=== PATIENT | female | born 1945 ===

== ENCOUNTER 2016-09-20 15:01 | Emergency (ER) | payer BC ==
[2016-09-20 15:13] VITALS: BP 158/77
--- NOTE | 2016-09-20 19:35 | Emergency Department Report ---
ED Fall HPI - General Chief Complaint: Fall Stated Complaint: FALL Time Seen by Provider: 09/20/16 19:32 Source: patient, family Mode of arrival: Ambulatory - History of Present Illness Initial Comments: Patient here reported that she fell 2 days ago. She complained of bodyache after fall. She is reporting left hand swelling with pain. She is also reporting left knee pain and left facial abrasion. She denies that she hit her head or any loss of consciousness. She is complaining abrasion to left knee. Complaint: fall Onset/Timin -: days(s) Fall From: standing When Fall Occurred: # days [facility]BLE CARVER (2) Fall Witnessed: yes, by family Place Fall Occurred: home Loss of Consciousness: none Prolonged Down Time?: no Symptoms Prior to Fall: none Location: face Location - Extremities: Left: Hand (pain and swelling), Knee (pain and abrasion) Severity: mild Severity scale (0 -10): 3 Quality: aching Context: tripped/slipped Associated Symptoms: denies: headache, neck pain, numbness, weakness, chest paint, shortness of breath, abdominal pain, hematuria, unable to walk, lightheaded, vertigo, confusion - Related Data Home Medications Medication Instructions Recorded Confirmed Last Taken Hydrochlorothiazide 12.5 mg PO DAILY 09/20/16 09/20/16 09/20/16 Meclizine 25 mg PO BID PRN 09/20/16 09/20/16 Unknown metFORMIN [Glucophage] 500 mg PO BID 09/20/16 09/20/16 09/20/16 Previous Rx's Medication Instructions Recorded Last Taken Type traMADol [Ultram] 50 mg PO Q6HR PRN #20 tablet 09/20/16 Unknown Rx Allergies Allergy/AdvReac Type Severity Reaction Status Date / Time lisinopril Allergy Swelling Verified 09/20/16 15:13 ED Review of Systems ROS: Stated complaint: FALL Other details as noted in HPI Comment: All other systems reviewed and negative Constitutional: denies: chills, fever ENT: denies: epistaxis Respiratory: no symptoms reported Cardiovascular: denies: chest pain, palpitations, dyspnea on exertion Gastrointestinal: denies: abdominal pain, nausea, vomiting, diarrhea Musculoskeletal: joint swelling, arthralgia Skin: other (abrasions). denies: rash Neurological: denies: headache, weakness, numbness, paresthesias, confusion, abnormal gait ED Past Medical Hx - Past Medical History Previous Medical History?: Yes Hx Hypertension: Yes Hx Diabetes: Yes - Surgical History Past Surgical History?: Yes Additional Surgical History: Tubaligation - Family History Family history: hypertension - Social History Smoking Status: Never Smoker Substance Use Type: Alcohol, Non Opiate Pain, Prescribed - Medications Home Medications: Home Medications Medication Instructions Recorded Confirmed Last Taken Type Hydrochlorothiazide 12.5 mg PO DAILY 09/20/16 09/20/16 09/20/16 History Meclizine 25 mg PO BID PRN 09/20/16 09/20/16 Unknown History metFORMIN [Glucophage] 500 mg PO BID 09/20/16 09/20/16 09/20/16 History traMADol [Ultram] 50 mg PO Q6HR PRN #20 tablet 09/20/16 Unknown Rx ED Physical Exam - General Limitations: No Limitations General appearance: alert, in no apparent distress - Head Head exam: Present: atraumatic, normocephalic, normal inspection - Expanded Head Exam Expanded Head exam: Absent: laceration, abrasion, contusion, hematoma, racoon eyes, brown's sign, general tenderness, tenderness of temporal artery, CSF rhinorrhea , CSF otorrhea - Eye Eye exam: Present: normal appearance, PERRL, EOMI Pupils: Present: normal accommodation - Neck Neck exam: Present: normal inspection, full ROM. Absent: tenderness, meningismus, lymphadenopathy - Respiratory Respiratory exam: Present: normal lung sounds bilaterally. Absent: respiratory distress - Cardiovascular Cardiovascular Exam: Present: regular rate, normal rhythm, normal heart sounds - GI/Abdominal GI/Abdominal exam: Present: soft, normal bowel sounds. Absent: distended, tenderness, guarding, rebound, rigid - Extremities Exam Extremities exam: Present: normal inspection, full ROM, other (patient with with full flexion and extension extension to both knees. No ballottement in or effusion noted. Nontender to palpate. Normal temperature.). Absent: tenderness - Back Exam Back exam: Present: normal inspection, full ROM. Absent: tenderness, CVA tenderness (R), CVA tenderness (L), muscle spasm, paraspinal tenderness, vertebral tenderness, rash noted - Neurological Exam Neurological exam: Present: alert, oriented X3, normal gait, reflexes normal. Absent: motor sensory deficit - Expanded Neurological Exam Expanded Neurological exam: Absent: innattentive, memory loss-remote event, memory loss- recent event, ataxia, receptive aphasia, expressive aphasia, total aphasia, tremor, protecting the airway Patient oriented to: Present: person, place, time Speech: Present: fluid speech Cranial nerves: EOM's Intact: Normal, Gag Reflex: Normal, Nystagmus: Normal, Facial Sensation: Normal Cerebellar function: Romberg: Normal Upper motor neuron: Pronator Drift: Normal, Sensory Extinction: Normal Sensory exam: Upper Extremity Light Touch: Normal, Upper Extremity Temperature: Normal, UE 2 Point Discrimination: Normal, Lower Extremity Light Touch: Normal, Lower Extremity Temperature: Normal, LE 2 Point Discrimination: Normal Motor strength exam: RUE: 5, LUE: 5, RLE: 5, LLE: 5 DTR: bicep (R): 2+, bicep (L): 2+, tricep (R): 2+, tricep (L): 2+, knee (R): 2+ , knee (L): 2+, ankle (R): 2+, ankle (L): 2+ Best Eye Response (Doug): (4) open spontaneously Best Motor Response ([place]): (6) obeys commands Best Verbal Response (Doug): (5) oriented Doug Total: 15 - Psychiatric Psychiatric exam: Present: normal affect, normal mood - Skin Skin exam: Present: warm, dry, normal color, abrasion (superficial abrasion to left knee and left facial area.). Absent: erythema ED Course Vital Signs 09/20/16 15:08 Temperature 98.4 F Pulse Rate 70 Respiratory 20 Rate Blood Pressure 158/77 O2 Sat by Pulse 100 Oximetry - Reevaluation(s) Reevaluation #1: 09/20/16 21:15 Patient given Boostrix injection in emergency room for abrasions. ED Medical Decision Making - Radiology Data Radiology results: report reviewed X-ray of left hand reveal normal exam - Medical Decision Making ED course: Patient here status post fall 2 days ago. I explained to her based on my clinical finding she is having musculoskeletal pain and that should subside over the next couple days. She given tetanus vaccine in emergency room because her tetanus shot is not up-to-date. Explained to her that her x-ray of left hand was normal. Patient was understanding of discharge instruction discharged home with prescription for Ultram. Critical care attestation.: If time is entered above; I have spent that time in minutes in the direct care of this critically ill patient, excluding procedure time. ED Disposition Clinical Impression: Arthralgia of multiple sites, Abrasion, multiple sites Fall, accidental Qualifiers: Encounter type: initial encounter Qualified Code(s): W19.XXXA - Unspecified fall, initial encounter Disposition: DISCHARGED TO HOME OR SELFCARE Is pt being admited?: No Does the pt Need Aspirin: No Condition: Stable Instructions: Fall Prevention for Older Adults (ED), Abrasion (ED), Arthralgia (ED), Knee Pain (ED), Knee Exercises (GEN) Prescriptions: traMADol [Ultram] 50 mg PO Q6HR PRN #20 tablet PRN Reason: Pain Referrals: NORMA VELÁSQUEZ MD [Primary Care Provider] - 2-3 Days SHIVAM SIBLEY MD [Staff Physician] - 3-5 Days Forms: Work/School Release Form(ED)
--- NOTE | 2016-09-20 20:58 | XRay Report ---
FINAL REPORT PROCEDURE: XR HAND 3 LT TECHNIQUE: LEFT hand radiographs, AP, lateral, and oblique views. CPT 59711-DF HISTORY: fall with pain and swelling lt hand COMPARISON: No prior studies are available for comparison. FINDINGS: Fracture (s) and/or Dislocation(s): None . Alignment: Normal . Joint space(s): Normal . Soft tissues: Normal . Bone mineralization: Normal . Foreign bodies: None . IMPRESSION: Normal Examination .
[2016-09-20] MEDS ORDERED: BOOSTRIX IM ONE (21:12)
== END 2016-09-20 21:20 | disposition home or self-care (01) ==
LOC: ED 15:01
DX: S80.212A Abrasion, left knee, initial encounter (principal); S00.81XA Abrasion of other part of head, initial encounter; I10 Essential (primary) hypertension; E11.9 Type 2 diabetes mellitus without complications; Z98.51 Tubal ligation status; Z88.8 Allergy status to other drugs, medicaments and biological substances; W01.0XXA Fall on same level from slipping, tripping and stumbling without subsequent striking against object, initial encounter; Y93.89 Activity, other specified; Y92.098 Other place in other non-institutional residence as the place of occurrence of the external cause; Y99.8 Other external cause status
CPT/HCPCS: 90471; 90715; 99283

== ENCOUNTER 2017-12-02 09:37 | Outpatient (CLI) | payer MEDICARE ==
--- NOTE | 2017-12-02 11:19 | Mammography Report ---
BILATERAL MAMMOGRAM: FINDINGS: The breasts are almost entirely fat (<25% glandular). No mass, distortion, suspicious calcification, or skin change is seen. CAD was utilized. IMPRESSION: Negative mammogram. There is no mammographic evidence of malignancy. RECOMMENDATION: Follow-up per ACS guidelines. BI-RADS CATEGORY: 1 = Negative ACR BI-RADS MAMMOGRAPHIC CODES: 0 = Needs additional imaging evaluation; 1 = Negative; 2 = Benign; 3 = Probably benign; 4 = Suspicious; 5 = Malignant; 6 = Known biopsy-proven malignancy COMMENT: 1. Dense breast tissue, i.e., adenosis, fibrocystic changes, etc., may obscure an underlying neoplasm. 2. Approximately 10% of cancers are not detected with mammography. 3. A negative mammography report should not delay biopsy if a clinically suspicious mass is present. COMMENT: Patient follow-up letters are generated in [employer].
== END 2017-12-02 09:38 | disposition home or self-care (01) ==
LOC: SPVWC 09:37
PROVIDERS: ATTEND Family Medicine
DX: Z12.31 Encounter for screening mammogram for malignant neoplasm of breast (principal)
CPT/HCPCS: 77067

== ENCOUNTER 2019-10-31 08:24 | Emergency (ER) | payer MEDICARE ==
--- NOTE | 2019-10-31 09:09 | Emergency Department Report ---
ED CPR HPI - General Stated Complaint: CARDIAC ARREST Time Seen by Provider: 10/31/19 08:34 - History of Present Illness Initial Comments: This is a 73-year-old female that was found to be obtunded by the fire department. By the time of EMS arrival she was completely unresponsive. She was intubated. Resuscitative efforts proceeded. The patient had no return of spontaneous circulation until just upon arrival to the hospital. Medics state that they did CPR for greater than 15 minutes. There her last dose of epi was at 8:19. CPR continued without any return of spontaneous circulation for an additional approximate 15 minutes. I did see on the monitor what appeared to be possible V. tach. However when the patient was connected to our monitor she was found to be in asystole. Doppler exam was negative. The patient had fixed and dilated pupils. She had already received prolonged resuscitative efforts without return of spontaneous circulation. Thereby, I did not feel that further resuscitative efforts were warranted. Patient was pronounced DOA. Later nursing staff thought that the patient had some complexes. I did return and examined the patient. She had no signs of life. She was in asystole. Her Doppler exam was negative. Again no further resuscitative efforts were warranted. I attempted to group therapy counselor the son but he was quite distraught. MD Complaint: stopped breathing, collapsed during rest Place: home Bystander CPR Performed: No Shock Advised: No Initial Findings in the Field: systole ROSC in the Field: Yes (Medics state the patient went into V. tach after prolonged resuscitation.) Treatments Prior to Arrival: intubation, epinephrine mgs # - Related Data Home Medications Medication Instructions Recorded Confirmed Last Taken Hydrochlorothiazide 12.5 mg PO DAILY 09/20/16 09/20/16 09/20/16 Meclizine 25 mg PO BID PRN 09/20/16 09/20/16 Unknown metFORMIN [Glucophage] 500 mg PO BID 09/20/16 09/20/16 09/20/16 Previous Rx's Medication Instructions Recorded Last Taken Type traMADoL [Ultram] 50 mg PO Q6HR PRN #20 tablet 09/20/16 Unknown Rx Allergies Allergy/AdvReac Type Severity Reaction Status Date / Time lisinopril Allergy Swelling Verified 09/20/16 15:13 ED Review of Systems ROS: Stated complaint: CARDIAC ARREST Other details as noted in HPI Comment: Unobtainable due to pts medical conditions ED Past Medical Hx - Past Medical History Previous Medical History?: Yes Hx Hypertension: Yes Hx Diabetes: Yes - Surgical History Past Surgical History?: Yes Additional Surgical History: Tubaligation - Social History Smoking Status: Never Smoker Substance Use Type: Alcohol, Non Opiate Pain, Prescribed - Medications Home Medications: Home Medications Medication Instructions Recorded Confirmed Last Taken Type Hydrochlorothiazide 12.5 mg PO DAILY 09/20/16 09/20/16 09/20/16 History Meclizine 25 mg PO BID PRN 09/20/16 09/20/16 Unknown History metFORMIN [Glucophage] 500 mg PO BID 09/20/16 09/20/16 09/20/16 History traMADoL [Ultram] 50 mg PO Q6HR PRN #20 tablet 09/20/16 Unknown Rx ED Physical Exam - General Limitations: Other - Head Head exam: Present: atraumatic - Eye Eye exam: Present: other (Fixed and dilated pupils). Absent: scleral icterus - Neck Neck exam: Present: normal inspection - Respiratory Respiratory exam: Present: other (No spontaneous respirations. Intubated patient) - Cardiovascular Cardiovascular Exam: Present: other (No cardiac activity found) - GI/Abdominal GI/Abdominal exam: Absent: distended - Extremities Exam Extremities exam: Present: normal inspection - Neurological Exam Neurological exam: Present: other (GCS 3) ED Course - Reevaluation(s) Reevaluation #1: Patient was pronounced. No signs of life. I attempted to group therapy counselor the son. I will speak to him again as able. 10/31/19 09:11 Critical care attestation.: If time is entered above; I have spent that time in minutes in the direct care of this critically ill patient, excluding procedure time. ED Disposition Clinical Impression: Cardiac arrest Disposition: DC-20 Is pt being admited?: No Does the pt Need Aspirin: No Condition: Stable Time of Disposition: 09:12
== END 2019-10-31 10:45 ==
LOC: ED 08:24
DX: I46.9 Cardiac arrest, cause unspecified (principal); I10 Essential (primary) hypertension; E11.9 Type 2 diabetes mellitus without complications; Z98.51 Tubal ligation status; Z79.899 Other long term (current) drug therapy; Z88.8 Allergy status to other drugs, medicaments and biological substances
CPT/HCPCS: 92950